=== PATIENT | male | born 1980 | race Caucasian/White ===

== ENCOUNTER → 2020-11-30 | Outpatient (CLI) | payer OTHER | LOC: LAB 09:46 | DX: E29.1 Testicular hypofunction (principal) ==

== ENCOUNTER → 2021-02-12 | Outpatient (CLI) | payer OTHER ==
[2021-02-12 15:46] LABS: BASO # 0.02 K/mm3 (0.02-0.10); EOS # 0.06 K/mm3 (0.04-0.40); HEMATOCRIT 43.6 % (42.0-52.0); HEMOGLOBIN 14.6 g/dL (13.5-18.0); MEAN CELL VOLUME 94 fl (78-100); MEAN CORPUSCULAR HEMOGLOBIN 32 pg (27-31); MEAN CORPUSCULAR HGB CONC 34 g/dL (33-37); MEAN PLATELET VOLUME 9.7 fl (7.4-10.4); MONO # 0.47 K/mm3 (0.20-0.80); NEU # 3.16 K/mm3 (1.40-6.50); PLATELET COUNT 235 K/mm3 (130-400); RED BLOOD COUNT 4.64 M/mm3 (4.20-5.60); RED CELL DISTRIBUTION WIDTH 13.1 % (11.5-14.5); WHITE BLOOD COUNT 5.7 K/mm3 (4.8-10.8)
[2021-02-12 15:50] LABS: POTASSIUM 3.7 mmol/L (3.5-5.1)
[2021-02-12 15:51] LABS: CALCIUM 9.1 mg/dL (8.3-10.5)
[2021-02-12 15:52] LABS: TOTAL PROTEIN 7.1 g/dL (6.4-8.3)
[2021-02-12 15:54] LABS: TOTAL BILIRUBIN 1.4 mg/dL (0.2-1.2)
== END ==
LOC: LAB 15:31
PROVIDERS: Nurse Practitioner
DX: R60.0 Localized edema (principal)

== ENCOUNTER → 2021-04-03 | Outpatient (CLI) | payer OTHER | LOC: LAB 08:13 | DX: U07.1 COVID-19 (principal) ==

== ENCOUNTER → 2023-05-02 | Outpatient (CLI) | payer BC ==
[~2023-05-02] MED LIST: Iohexol 300 - 100 ML VIAL IV ONE
== END ==
LOC: RAD 12:58
DX: N20.0 Calculus of kidney (principal); K76.0 Fatty (change of) liver, not elsewhere classified
CPT/HCPCS: Q9967